=== PATIENT | female | born 1965 ===

== ENCOUNTER 2018-09-12 11:06 | Outpatient (CLI) | payer OTHER ==
[~2018-09-12] VITALS: Ht 152.4 cm; Wt 140.6 kg
[~2018-09-12 11:06] MED LIST: CEFUROXIME500 MG PO; FLONASE16 GM NS
== END 2018-09-12 11:25 | disposition home or self-care (01) ==
LOC: OFIC 805 11:06
DX: R42 Dizziness and giddiness (principal); H93.13 Tinnitus, bilateral; J30.89 Other allergic rhinitis; R04.0 Epistaxis